=== PATIENT | male | born 1960 | race African-American/Black ===

== ENCOUNTER 2025-03-27 09:24 | Emergency (ER) | payer MEDICAID ==
[~2025-03-27] VITALS: Ht 188 cm; Wt 91.0 kg
[2025-03-27 09:27] VITALS: O2SAT 99
[2025-03-27 11:00] VITALS: BP 104/64; PULSE 70; RESP 18; TEMP 37.1; O2SAT 99
== END 2025-03-27 11:29 | disposition home or self-care (01) ==
LOC: ER 09:24
DX: T83.091A Other mechanical complication of indwelling urethral catheter, initial encounter (principal); J44.89 Other specified chronic obstructive pulmonary disease; I11.0 Hypertensive heart disease with heart failure; I50.9 Heart failure, unspecified; E11.9 Type 2 diabetes mellitus without complications; Y73.8 Miscellaneous gastroenterology and urology devices associated with adverse incidents, not elsewhere classified
CPT/HCPCS: 51702; 99284